=== PATIENT | male | born 2000 | race Hispanic/Latino ===

== ENCOUNTER 2022-10-24 16:10 | Emergency (ER) | payer OTHER ==
[~2022-10-24] VITALS: Ht 167.6 cm; Wt 56.7 kg
[2022-10-24 17:50] VITALS: BP 143/58
[2022-10-24] MEDS ORDERED: L.E.T. GEL 3ML SYG TP ONE (18:30)
[2022-10-24] MEDS ORDERED: BACI30OI6 TP (19:39)
[2022-10-24] MEDS ORDERED: BACITRACIN 28.4 GM OINT TP ONE (20:00)
== END 2022-10-24 19:48 | disposition home or self-care (01) ==
LOC: EDH 16:10
DX: S61.211A Laceration without foreign body of left index finger without damage to nail, initial encounter (principal); W25.XXXA Contact with sharp glass, initial encounter; Y93.89 Activity, other specified; Y92.89 Other specified places as the place of occurrence of the external cause; Y99.8 Other external cause status
CPT/HCPCS: 12001; 73140

== ENCOUNTER 2022-11-06 22:57 | Emergency (ER) | payer OTHER ==
[~2022-11-06] VITALS: Ht 167.6 cm; Wt 59.0 kg
[~2022-11-06 22:57] MED LIST: BACI30OI6 TP
[2022-11-06 22:58] VITALS: BP 140/79
[2022-11-06] MEDS ORDERED: CEPH500B PO (23:34)
== END 2022-11-06 23:44 | disposition home or self-care (01) ==
LOC: EDH 22:57
DX: S61.211D Laceration without foreign body of left index finger without damage to nail, subsequent encounter (principal); L03.012 Cellulitis of left finger; Z79.899 Other long term (current) drug therapy; X58.XXXD Exposure to other specified factors, subsequent encounter

== ENCOUNTER 2023-08-18 23:34 | Emergency (ER) | payer OTHER ==
[~2023-08-18] VITALS: Ht 167.6 cm; Wt 59.0 kg
[~2023-08-18 23:34] MED LIST changes: +CEPH500B PO
[2023-08-18 23:44] VITALS: BP 119/72; PULSE 73; RESP 16; O2SAT 100
[2023-08-19] MEDS ORDERED: ONDANSETRON ODT 4MG TAB SL ONE
[2023-08-19] MEDS ORDERED: ONDA4TAB10 PO (00:32)
== END 2023-08-19 00:37 | disposition home or self-care (01) ==
LOC: EDH 23:34
DX: K52.9 Noninfective gastroenteritis and colitis, unspecified (principal)

== ENCOUNTER 2025-05-05 14:59 | Emergency (ER) | payer SELFPAY ==
[~2025-05-05] VITALS: Ht 167.6 cm; Wt 59.0 kg
[~2025-05-05 14:59] MED LIST changes: +ONDA-243 PO
--- NOTE | 2025-05-05 15:40 | EKG ---
[facility] Test Date: 2025-05-05 Test Time: 15:36:41 Pat Name: ANDRE GALLEGO Department: [facility] Room: Gender: Protective Services Officer: [facility] : 2000 Requested By: GEORGE DAWSON Order Number: [id number] Reading MD: Erika Magallon Measurements Intervals [place] Rate: 63 P: 16 TX: 161 QRS: 88 QRSD: 90 T: 57 QT: 360 QTc: 370 Interpretive Statements Sinus rhythm ST elev, probable normal early repol pattern No previous ECG available for comparison Electronically Signed On 05-07-2025 14:13:31 CDT by Erika Magallon Please click the below link to view image of tracing.
[2025-05-05 16:02] LABS: CREATININE 0.7 mg/dL (0.5-1.3); GLOMERULAR FILTR. RATE CALC 132.0 mL/min (>90); GLUCOSE,RANDOM 101.0 mg/dL (70-105); SODIUM SERUM 145.0 mmol/L (136-145); UREA NITROGEN, BLOOD 11.0 mg/dL (7-18)
[2025-05-05 16:12] LABS: ASPARTATE AMINOTRANSFERASE 24.0 U/L (10-37); TOTAL PROTEIN, SERUM 7.7 g/dL (6.0-8.3)
[2025-05-05 16:46] LABS: IMMATURE GRANULOCYTE ABSOLUTE 0.05 K/uL (0-1); NUCLEATED RED BLOOD CELLS 0.0 % (0.0-0.19); PLATELET COUNT (AUTO) 257 K/uL (130-400); RED BLOOD CELL COUNT(AUTO) 4.99 MIL/uL (4.50-6.20); RED CELL DISTRIBUTION WIDTH 12.9 % (11.0-15.5); WHITE BLOOD COUNT (AUTO) 6.8 K/uL (4.8-10.8)
--- NOTE | 2025-05-05 16:57 | ERN ---
ED Note History of Present Illness Stated Complaint: CHEST PAIN Chief Complaint: Chest Wall Pain Time Seen by MD: 15:05 Time Seen by Midlevel: 15:08 Dictation: 25-year-old male coming in with complaints of left chest wall pain onset two days ago. Patient states he was sent here by his mom and girlfriend to be evaluated. Denies having any medical or surgical history. Denies any recent illness like fever cough chills nausea or vomiting or diarrhea. Denies any drug use. Allergies: Coded Allergies: No Known Allergies (Unverified Allergy, Unknown, 10/24/22) Home Meds Active Scripts Ondansetron (Ondansetron Odt) 4 Mg Tab.rapdis, 4 MG PO Q6HPRN PRN for NAUSEA/VOMITING, #20 TAB Prov:ARIAN ZELAYA [employer]Y CHAIN OFFBEARER 08/19/23 Cephalexin Monohydrate (Keflex) 500 Mg Cap, 1000 MG PO BID for 7 Days, #28 CAP Prov:JAIME NIELSEN [employer]LE [employer]IVER ENGINEER 11/06/22 Bacitracin (Bacitracin) 28.4 Gm Oint...g., 28.4 GM TP TID, #1 TUBE Prov:ANDERSON HOFFMAN [employer] CH[employer] OFFBEARER 10/24/22 Past Medical History Past Medical History: No Pertinent History Surgical History: Other Surgical History Other: UMBILICAL HERNIA Family History: Negative Social History: Negative, Lives with family Review of System Dictation Constitutional: Negative for fever,chills, and weight loss Eyes: Negative for injury, pain,redness, and discharge ENT: Negative for injury,pain or swelling Cardiovascular chest wall pain, no palpitations no edema Respiratory: Negative for shortness of breath, cough, and wheezing, Abdomen/GI: Negative for abdominal pain, nausea, vomiting, diarrhea, and constipation Back: Negative for injury and pain : Negative for injury, bleeding and discharge MS/Extremity: Negative for injury and deformity Skin: Negative for rash, and discoloration Neuro: Negative for headache, weakness, numbness, tingling, and seizure Psych: Negative for suicide ideation, homicidal ideation, and hallucinations Review of Systems: was completed Initial Vital Sign VS Vital Signs Date Time Temp Pulse Resp B/P (MAP) Pulse Ox O2 Delivery O2 Flow Rate FiO2 05/05/25 15:03 98.4 70 16 129/85 98 Room Air 0 05/05/25 15:15 21 Physical Exam Dictation General: awake, alert, NAD Head/Face: Normocephalic, atraumatic Eyes: PERRL, EOMI, vision at baseline ENT: oral cavity clear, TMs clear, no signs of infection Neck: Trachea midline, supple, no nuchal rigidity Cardiovascular: RRR, normal S1/S2, No MRGs, no JVD, reproducible chest pain on palpation to the left chest wall Respiratory: CTAB, no respiratory distress, No rales or wheezes Abdomen: Soft, non-tender, non-distended, normal bowel sounds, no guarding or rebound. Skin: Warm, dry, normal turgor, no rash MS/Extremity: Pulses equal, no cyanosis, neurovascular intact, FROM Neuro: COAx4, GCS 15, strength 5/5, CN 2-12 intact, normal cerebellar exam, normal gait, Psych: Normal behavior, mood, and affect normal Results (Laboratory/Radiology) Laboratory/Radiology Laboratory Tests Test 05/05/25 15:43 White Blood Count 6.8 K/uL (4.8-10.8) Red Blood Count 4.99 MIL/uL (4.50-6.20) Hemoglobin 14.8 g/dL (14.0-18.0) Hematocrit 44.2 % (42-54) Mean Corpuscular Volume 88.6 fL (79-99) Mean Corpuscular Hemoglobin 29.7 pg (27.0-33.0) Mean Corpuscular Hemoglobin Concent 33.5 g/dL (32.0-36.0) Red Cell Distribution Width 12.9 % (11.0-15.5) Platelet Count 257 K/uL (130-400) Mean Platelet Volume 10.9 fL (7.5-10.5) H Immature Granulocyte % (Auto) 0.7 % (0-1) Neutrophils (%) (Auto) 51.3 % (40.0-77.0) Lymphocytes (%) (Auto) 33.9 % (21.0-51.0) Monocytes (%) (Auto) 10.3 % (3.0-13.0) Eosinophils (%) (Auto) 3.2 % (0.0-8.0) Basophils (%) (Auto) 0.6 % (0.0-5.0) Neutrophils # (Auto) 3.5 K/uL (1.8-7.7) Lymphocytes # (Auto) 2.3 K/uL (1.0-4.8) Monocytes # (Auto) 0.7 K/uL (0.1-1.0) Eosinophils # (Auto) 0.22 K/uL (0.00-0.70) Basophils # (Auto) 0.04 K/uL (0.00-0.20) Absolute Immature Granulocyte (auto 0.05 K/uL (0-1) Nucleated Red Blood Cells 0.0 % (0.0-0.19) Sodium Level 145 mmol/L (136-145) Potassium Level 4.4 mmol/L (3.5-5.1) Chloride Level 107 mmol/L (101-111) Carbon Dioxide Level 29 mmol/L (21-32) Blood Urea Nitrogen 11 mg/dL (7-18) Creatinine 0.7 mg/dL (0.5-1.3) Glomerular Filtration Rate Calc 132 mL/min (>90) Random Glucose 101 mg/dL (70-105) Total Calcium 9.4 mg/dL (8.5-10.1) Total Bilirubin 0.4 mg/dL (0.2-1.0) Aspartate Amino Transf (AST/SGOT) 24 U/L (10-37) Alanine Aminotransferase (ALT/SGPT) 54 U/L (12-78) Alkaline Phosphatase 91 U/L (50-136) Troponin I High Sensitivity 5 ng/L (4-75) Total Protein 7.7 g/dL (6.0-8.3) Albumin 4.0 g/dL (3.5-5.0) Labs Reviewed?: Yes EKG Comment: EKGs did not 1536. Sinus rhythm, rate of 63. No STEMI interpreted by ER MD. ED Course ED Course Orders Procedure Category Date Status Time 12 Lead Ekg Tracing- EKG 05/05/25 Complete Technical 15:32 Comprehensive LAB 05/05/25 Complete Metabolic Panel 15:32 Basic Metabolic Panel LAB 05/05/25 Complete 15:32 Troponin I High LAB 05/05/25 Complete Sensitivity 15:32 Ketorolac PHA 05/05/25 Complete Tromethamine 15mg/Ml 15:32 Cbc With Differential LAB 05/05/25 Complete 16:24 Current Medications Medications (Trade) Dose Ordered Sig/Juani Route PRN Reason Start Time Stop Time Status Last Admin Dose Admin Ketorolac Tromethamine (toRADol) 15 mg ONCE STAT IM 05/05/25 15:32 05/05/25 15:33 DC 05/05/25 16:41 Vital Signs Date Time Temp Pulse Resp B/P (MAP) Pulse Ox O2 Delivery O2 Flow Rate FiO2 05/05/25 15:15 98.2 72 16 128/82 98 Room Air* 0 21 05/05/25 15:03 98.4 70 16 129/85 98 Room Air 0 Medical Decision Making MDM MDM: 25-year-old male coming in with complaints of left chest wall pain onset two days ago. Patient states he was sent here by his mom and girlfriend to be evaluated. Denies having any medical or surgical history. Denies any recent illness like fever cough chills nausea or vomiting or diarrhea. Denies any drug use. Blood work unremarkable. EKGs unremarkable. Discussed findings with the patient. Educated patient this could be costochondritis and follow up with PCP in 1-2 days. Educated if symptoms worsen to return back to the emergency room. Differential diagnosis: Dehydration, electrolyte abnormality, costochondritis, pleurisy, NV Rationale: Tests considered and ordered secondary to shared decision making include: Previous outside records reviewed: Old ER visits. Risk of complication and/or morbidity or mortality of patient management: None Medications-Per medication reconciliation Need for hospitalization: Patient does not meet criteria for hospitalization. Need for emergency major/minor surgery: No There are no social concerns with this patient. Prescription drug management Prescriptions will include symptomatic care Patient's prior external medical records from other ER visits were reviewed by me as indicated. Prior testing and results from previous visits were reviewed. Prior tests were taken into account with medical decision making and resource utilization, independent historian/historians were used to obtain complete medical history. I independently interpreted the test that were performed, results were reviewed by me and considered findings on radiology if ordered. Medical management and examination interpretation discussions were had by me with other qualified healthcare professionals as indicated for the patient's care. DX & DISP Disposition: Discharge Departure Impression: Primary Impression: Costochondritis Condition: Stable Additional Instructions: Follow up with PCP in 1-2 days. Referrals: SELF,REFERRAL (PCP) Time of Disposition: 16:56 I have reviewed the case, and I agree with, Diagnosis and Plan GEORGE DAWSON NP May 05, 2025 16:57
[2025-05-05 16:58] VITALS: BP 125/80; PULSE 68; RESP 16; TEMP 98.3; O2SAT 98
== END 2025-05-05 17:04 | disposition home or self-care (01) ==
LOC: EDH 14:59
DX: M94.0 Chondrocostal junction syndrome [Tietze] (principal); Z79.899 Other long term (current) drug therapy
CPT/HCPCS: 99284; 84484; 80053; 85025; 36415; 96372; 93005; J1885